=== PATIENT | female | born 2000 | race African-American/Black ===

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

== ENCOUNTER → 2019-07-12 13:35 | Outpatient (CLI) | payer MEDICAID ==
[2018-07-16 15:53] VITALS: BMI 18.8
[~2019-07-12 13:35] MED LIST changes: +PRENAVITE1 TAB PO
== END | disposition home or self-care (01) ==
LOC: D.LDO 13:35
PROVIDERS: ATTEND Obstetrics & Gynecology
DX: O36.5930 Maternal care for other known or suspected poor fetal growth, third trimester, not applicable or unspecified (principal); Z3A.36 36 weeks gestation of pregnancy

== ENCOUNTER → 2019-07-16 11:39 | Outpatient (CLI) | payer MEDICAID ==
[2018-07-16 15:53] VITALS: BMI 18.8
== END | disposition home or self-care (01) ==
LOC: D.LDO 11:39
PROVIDERS: ATTEND Obstetrics & Gynecology
DX: O36.5990 Maternal care for other known or suspected poor fetal growth, unspecified trimester, not applicable or unspecified (principal)

== ENCOUNTER 2019-07-17 14:51 | Inpatient (IN) | payer MEDICAID ==
[~2019-07-17] VITALS: Ht 160 cm; Wt 64.0 kg
[~2019-07-17 14:51] MED LIST changes: -PRENAVITE1 TAB PO
[2019-07-17] MEDS ORDERED: PRENAVITE1 TAB PO (16:23)
[2019-07-17 17:11] LABS: HEMATOCRIT 30.6 % (36.0-48.0); HEMOGLOBIN 9.6 g/dL (12-16); MCH 27.6 pg (26.0-34.0); MCHC 31.4 g/dL (31.0-37.0); MCV 87.9 fL (80.0-100.0); RBC 3.48 10x6/uL (4.00-5.40); RDW 14.8 % (11.5-14.5); WBC 6.5 10x3/uL (4.8-10.8)
[2019-07-17 17:24] VITALS: BP 110/67; Ht 160 cm; Wt 64.0 kg
[2019-07-17 18:41] LABS: APPEARANCE CLEAR (CLEAR); BILIRUBIN NEGATIVE (NEGATIVE); COLOR STRAW (YELLOW); GLUCOSE NEGATIVE (NEGATIVE); KETONE NEGATIVE (NEGATIVE); NITRITE NEGATIVE (NEGATIVE); PROTEIN NEGATIVE (NEGATIVE); SPECIFIC GRAVITY 1.005 (1.005-1.020); UROBILINOGEN NORMAL (NORMAL)
[2019-07-17 18:54] LABS: UDS - AMPHET NEGATIVE QUAL (NEGATIVE); UDS - BARB NEGATIVE QUAL (NEGATIVE); UDS - BENZO NEGATIVE QUAL (NEGATIVE); UDS - COCAINE NEGATIVE QUAL (NEGATIVE); UDS - OPIATE NEGATIVE QUAL (NEGATIVE); UDS - PCP NEGATIVE QUAL (NEGATIVE); UDS - THC NEGATIVE QUAL (NEGATIVE)
[2019-07-17 23:57] VITALS: BP 124/76
--- NOTE | 2019-07-17 23:57 | NUR ---
PT RECEIVED TO ROOM 1222 S/P . PT IS AWAKE AND ALERT AT THIS TIME. SHE STATES SHE IS NOT HURTING AT THIS TIME. REPORT RECEIVED AT BEDSIDE FROM RR NURSE. PT HAS AN IV SITED IN HER RIGHT HAND. IV IS PATENT. THERE IS NOT REDNESS OR SWELLING AT THE SITE. MANAGER SMALL BUSINESS PUMP WITH DILAUDID WAS INITIATED AND THE MANAGER SMALL BUSINESS PAIN CONTROL BUTTON EXPLAINED. SHE HAS A WHITE DRESSING OVER HER INCISION. THERE IS A SMALL AMT OF LIGHT DRAINAGE NOTED WHICH WAS OUTLINED WITH A BLUE PEN. SCD'S PLACED AND WORKING PROPERLY. SHE HAS A BRADSHAW CATHETER DRAINING CONCENTRATED LOOKING URINE. BRADSHAW EMPTIED WITH 350 ML OBTAINED. INCENTIVE SPIROMETER EXPLAINED TO PT AND PT VERBALIZES UNDERSTANDING. PT STATES THAT SHE DOES NOT SMOKE. PEDAL PULSES FELT BILATERALLY. HEART SOUNDS WNL, LUNGS ARE CLEAR, NO BOWEL SOUNDS HEARD AT THIS TIME.
[2019-07-18] VITALS (11 sets, daily range): BP systolic 105–150; BP diastolic 62–78
--- NOTE | 2019-07-18 02:15 | NUR ---
PT IS AWAKE AND TALKING. NEW BAG OF PITOCIN HUNG PER ORDER. PT STATES SHE HAS NO PAIN AT THIS TIME. HER BABY IS IN THE NURSERY AND PT AND SO ARE ENCOURAGED TO REST. PT PERFORMED IS 10 TIMES. PAD CHANGED. SMALL TO MOD AMT LOCHIA WITH SOME STRINGY CLOTS NOTED. BRADSHAW DRAINING WELL.
--- NOTE | 2019-07-18 04:40 | NUR ---
ROUNDS MADE FOR FEEDING ASSESSMENT. INFANT NOT WANTING TO TAKE REGULAR NIPPLE. RED NIPPLE PROVIDED. MOM ASSISTED W/GETTING INFANT TO SUCK W/CHIN SUPPORT INSTRUCTION GIVEN. PT SUCKING AND SWALLOWING.
--- NOTE | 2019-07-18 04:44 | NUR ---
PT IS RESTING QUIETLY. NO C/O AT THIS TIME FUNDUS FIRM. SO SLEEPING IN THE ROOM FLUIDS ENCOURAGED.
[2019-07-18 05:09] LABS: BASOPHILS 0.2 % (0-2); EOSINOPHILS 0.2 % (0-7); HEMATOCRIT 31.1 % (36.0-48.0); HEMOGLOBIN 9.8 g/dL (12-16); IMMATURE GRANULOCYTES 0.3 % (0-5); LYMPHOCYTES 13.3 % (15-50); MCH 27.7 pg (26.0-34.0); MCHC 31.5 g/dL (31.0-37.0); MCV 87.9 fL (80.0-100.0); MEAN PLATELET VOLUME 8.9 fL (7.4-10.4); MONOCYTES 7.7 % (2-11); NEUTROPHILS 78.3 % (40-80); RBC 3.54 10x6/uL (4.00-5.40); RDW 14.5 % (11.5-14.5)
[2019-07-18 05:27] LABS: PLATELET COUNT 171 10x3/uL (130-400); WBC 12.9 10x3/uL (4.8-10.8)
[2019-07-18 07:13] LABS: RAPID PLASMA REAGIN Non Reactive (Non Reactive)
--- NOTE | 2019-07-18 08:10 | NUR ---
PT RESTING IN BED WITH BABY AT BEDSIDE. RESP EVEN AND UNLABORED. PT REPORTS PAIN 8/10 AT THIS TIME. EDUCATED REGARDING DILAUDID DEMURRAGE AGENT. PT THEN PUSHES BUTTON FOR MED ADMINISTRATION. IV TO RIGHT HAND WITH NS w/ 20U PITOCIN INFUSING VIA PUMP. SITE WITHOUT REDNESS OR EDEMA. FUNDAS FIRM 1 BELOW UMBILICUS. SMALL TO SCANT VAGINAL DISCHARGE. INCISION WITH VERONIKA C/D/I, EDGES WELL APPROXIMATED. WITHOUR REDNESS OR EDEMA. DENIES FURTHER NEEDS AT THIS TIME. CL WITHIN REACH. ENCOURAGED TO CALL WITH NEEDS. CONTINUE POC
--- NOTE | 2019-07-18 09:10 | NUR ---
PT RESTING IN BED. F/C DISCONTINUED PER MD ORDERS. 10ML SALINE REMOVED FROM BULB. PT KRISTA WELL. IV SALINE LOCKED AT THIS TIME, FLUSHED WITH 10ML SALINE. EASILY FLUSHES, SITE WITHOUT REDNESS OR EDEMA. INSTRUCTED PT ON COLLEGE ASSOCIATE BEING D/C'D, AND ORAL PAIN MEDICATIONS AVAILABLE. PT VOICES UNDERSTANDING. DENIES FURTHER NEEDS AT THIS TIME. CL WITHIN REACH. HAT PLACED IN TOILET TO COLLECT URINE FOR OUTPUT. ENCOURAGED TO CALL WITH NEEDS. CONTINUE POC
--- NOTE | 2019-07-18 09:48 | NUR ---
PT REPORTS PAIN 10/10 AT THIS TIME. ADMINISTERED PAIN MEDICATIONS ORDERED PER MD. WILL REASSESS EFFECTIVENESS
--- NOTE | 2019-07-18 12:37 | NUR ---
PT REPORTS CONTINUED PAIN 01/05. MOTRIN ADMINISTERED PER MD ORDERS. DENIES FURTHER NEEDS AT THIS TIME. FAMILY AT BEDSIDE. ENCOURAGED TO CALL WITH NEEDS.
[2019-07-18 12:56] LABS: BASOPHILS 0.2 % (0-2); EOSINOPHILS 0.6 % (0-7); HEMATOCRIT 33.3 % (36.0-48.0); HEMOGLOBIN 10.6 g/dL (12-16); IMMATURE GRANULOCYTES 0.2 % (0-5); LYMPHOCYTES 9.9 % (15-50); MCH 28.2 pg (26.0-34.0); MCHC 31.8 g/dL (31.0-37.0); MCV 88.6 fL (80.0-100.0); MEAN PLATELET VOLUME 9.3 fL (7.4-10.4); MONOCYTES 7.5 % (2-11); NEUTROPHILS 81.6 % (40-80); PLATELET COUNT 183 10x3/uL (130-400); RBC 3.76 10x6/uL (4.00-5.40); RDW 14.5 % (11.5-14.5); WBC 12.3 10x3/uL (4.8-10.8)
--- NOTE | 2019-07-18 17:08 | NUR ---
PT AMBULATING IN ROOM. RESP EVEN AND UNLABORED. RATES PAIN 5/10 AT THIS TIME. VITAL SIGNS OBTAINED. DENIES FURTHER NEEDS AT THIS TIME. CL WITHIN REACH. ENCOURAGED TO CALL WITH NEEDS.
--- NOTE | 2019-07-18 17:20 | NUR ---
PT. UP WALKING IN ROOM. STATES PAIN IS MUCH BETTER.
--- NOTE | 2019-07-18 18:45 | NUR ---
RESTING IN BED. NO COMPLAINTS OR NEEDS AT THIS TIME.
--- NOTE | 2019-07-18 19:14 | NUR ---
PT IN NSY AT THIS TIME
--- NOTE | 2019-07-18 19:30 | NUR ---
PT BACK TO ROOM, INFORMED PT THAT I WILL BE IN SHORTLY TO DO ASSESSMENT, PT VERBALIZES UNDERSTANDING, DENIES NEEDS AT THIS TIME
--- NOTE | 2019-07-18 20:00 | NUR ---
ASSESSMENT PER FLOW SHEET, VS OBTAINED, SALINE LOCK IN RIGHT HAND INTACT WITH NO REDNESS OR EDEMA, FF, ML, U/2, PT REPORTS LITE BLEEDING WITH NO CLOTS, BIKINI INC WITH VERONIKA CDI WITH NO DRAINAGE, JAG PAD OVER INC FOR COMFORT AND MOISTURE CONTROL, PT INST ON AND VERBALIZES UNDERSTANDING OF INC CARE, +F, NO BM AND VOIDING WITH NO DIFFICULTY, PT REPORTS VOIDING BEFORE I CAME IN, EMPTIED 100 MLS OF LIGHTLY BLOOD TINGED URINE, PT RATES INC PAIN 04/07, INFORMED PT THAT I WILL CHECK ON PAIN MED AND ADM WHEN DUE, PT REQUESTED AND SERVED APPLE JUICE, DENIES FURTHER NEEDS
--- NOTE | 2019-07-18 21:16 | NUR ---
PT UP IN ROOM VISITING WITH FAMILY AND FRIENDS, FAMILY MEMBER HOLDING , ADM MARANDA AND ARIANA PER MD ORDERS, SEE EMAR, PT REPORTS VOIDING, EMPTIED 300 MLS OF YELLOW URINE FROM [place] [facility], PT DENIES FURTHER NEEDS
--- NOTE | 2019-07-18 22:49 | NUR ---
PT HOLDING INFANT, FOB IN BED WITH PT, SALINE LOCK IN RIGHT HAND FLUSHED WITH 10MLS OF NS WITH NO DIFFICULTY, PT RATES INC PAIN 02/05, REQUESTED AND PROVIDED BOX FAN, DENIES FURTHER NEEDS
[2019-07-19] VITALS (7 sets, daily range): BP systolic 90–121; BP diastolic 40–66
--- NOTE | 2019-07-19 00:30 | NUR ---
PT WALKING BACK INTO ROOM, REPORTS TAKING A LITTLE WALK, PT TO SIDE OF BED, VS OBTAINED, RATES INC PAIN 03/07, INFORMED PT THAT I WILL ADM PAIN MED WHEN DUE, PT VERBALIZES UNDERSTANDING, DENIES NEEDS AT THIS TIME, FOB AT BEDSIDE
--- NOTE | 2019-07-19 01:22 | NUR ---
PT RATES INC PAIN 04/07, ADM NORCO PER MD ORDERS, SEE EMAR, PT DENIES FURTHER NEEDS, FOB ASLEEP IN BED WITH PT
--- NOTE | 2019-07-19 02:28 | NUR ---
PT IN NSY AT THIS TIME
--- NOTE | 2019-07-19 03:35 | NUR ---
PT BACK TO ROOM TO USE THE BR, TOILET PAPER PROVIDED, C/O CRAMPING, ADM MARANDA PER MD ORDERS, PT BACK TO Y, GAIT STEADY
--- NOTE | 2019-07-19 04:45 | NUR ---
PT BACK TO ROOM, VS OBTAINED, RATES INC PAIN 11/05, DENIES NEEDS AT THIS TIME, FOB ASLEEP IN BED WITH PT
--- NOTE | 2019-07-19 06:04 | NUR ---
PT AWAKE, ADM NORCO PER MD ORDERS, SEE EMAR, SALINE LOCK FLUSHED WITH NO DIFFICULTY, PT DENIES FURTHER NEEDS, FOB ASLEEP IN BED WITH PT
--- NOTE | 2019-07-19 08:00 | NUR ---
PT OUT OF ROOM, AMBULATING IN HALLWAY GOING TO NURSERY TO SEE BABY. NO ACUTE DISTRESS NOTED. GAIT STEADY AT THIS TIME.
--- NOTE | 2019-07-19 10:15 | NUR ---
PT AMBULATING BACK TO ROOM. RESP EVEN AND UNLABORED. PT REPORTS PAIN 8/10 AT THIS TIME. PAIN MEDICATION TO BE ADMINISTERED PER MD ORDERS. SALINE LOC TO RIGHT HAND. SITE WITHOUT REDNESS OR EDEMA. FUNDUS FIRM, 2 BELOW UMBILICUS. SMALL TO SCANT LOCHIA. BIKINI INCISION WITH VERONIKA NOTED. EDGES WELL APPROXIMATED NO DRAINAGE NOTED. DENIES FURTHER NEEDS AT THIS TIME. CL WITHIN REACH. ENCOURAGED TO CALL WITH NEEDS. CONTINUE POC
--- NOTE | 2019-07-19 11:20 | NUR ---
SALINE LOCK D/C'D FROM LEFT HAND. CATHETER INTACT. BANDAGE PLACED OVER INSERTION SITE.
--- NOTE | 2019-07-19 13:04 | NUR ---
PT RESTING IN BED WITH FAMILY AT BEDSIDE. HAS AMBULATED SEVERAL TIMES TO THE NURSERY TO CHECK ON BABY. C/O UTERINE CRAMPING. REQUESTS MOTRIN.
--- NOTE | 2019-07-19 16:25 | NUR ---
PATIENT RESTING QUIETLY WITH EYES CLOSED IN BED. NO COMPLAINTS AT THIS TIME.
--- NOTE | 2019-07-19 17:44 | NUR ---
C/O INCISIONAL PAIN. REQUESTING PAIN MEDICINE. FRIENDS AND FAMILY AT BEDSIDE.
--- NOTE | 2019-07-19 18:28 | NUR ---
PATIENT SITTING UP IN BED WATCHING TV. STATES PAIN IS BETTER FOLLOWING NORCO ADMINISTRATION. NO OTHER COMPLAINTS AT THIS TIME.
--- NOTE | 2019-07-19 19:20 | NUR ---
PT RESTING IN BED. ASSESSMENT COMPLETE PER FLOWSHEET. VSS. BS CLEAR IN ALL LOBES. ABD SOFT, BUT DISTENDED. ACTIVE BS X4 QUADRANTS. PT C/O ABD PAIN STATING THAT IT FEELS LIKE "GAS." SHE REPORTS SHE HAS PASSED FLATUS, BUT HAS NOT HAD A BM. DISCUSSED WITH PT DRINKING PRUNE JUICE TO HELP HER HAVE A BM AND GETTING AN ORDER FROM MD FOR SIMETHICON FOR THE GAS DISCOMFORT. PT AGREED WITH BOTH. PT RATES HER PAIN AT 8/10, BUT IS INFORMED IT IS TO SOON FOR PAIN MEDICATION. DISCUSSED WITH PT THAT SHE NEEDS TO AMBULATE AND WHILE LYING IN BED TO REST ON HER SIDE TO HELP PASS GAS AND WITH THE DISCOMFORT. FUNDUS FIRM AT UMBILICUS. INCISION C/D/I WITH VERONIKA. SCANT AMOUNT OF LOCHIA NOTED ON PERIPAD. NO EDEMA NOTED TO BLE. POC DISCUSSED WITH PT INCLUDING PAIN MANAGEMENT, AMBULATION, S/S OF INFECTION, AND INCISION CARE. QUESTIONS ANSWERED. PT INSTRUCTED TO NOTIFY NURSE WITH ANY PROBLEMS, NEEDS, OR CONCERNS. VERBALIZED UNDERSTANDING. BED IN LOW POSITION. SRUP X2. CALL LIGHT AND TELEPHONE WITHIN PTS REACH.
--- NOTE | 2019-07-19 19:50 | NUR ---
PT. AMBULATORY TO ROOM FROM VISITING INFANT IN N. GAIT SLOW BUT STEADY.
--- NOTE | 2019-07-19 19:50 | NUR ---
DR. GIPSON CALLED AND INFORMED OF PT. C/O GAS ALTHOUGH PASSING FLATUS. ORDER RECEIVED.
--- NOTE | 2019-07-19 20:00 | NUR ---
SIMETHICON 160MG GIVEN TO PT FOR C/O GAS DISCOMFORT PER MD. PT ALSO DRINKING PRUNE JUICE AT THIS TIME.
--- NOTE | 2019-07-19 20:41 | NUR ---
PT. WALKING IN HALLWAY. VISITOR WITH PT. STATES SHARP PAINS IN ABD HAVE SUBSIDED BUT STILL HAS SOME BACKPAIN. STATES SHE WILL CONTINUE TO WALK.
--- NOTE | 2019-07-19 21:01 | NUR ---
PT UP TO BATHROOM TRYING TO HAVE A BM. C/O INCISIONAL PAIN. MOTRIN 600MG GIVEN. APPLE JUICE PROVIDED. INSTRUCTED PT TO NOTIFY NURSE WITH ANY OTHER PROBLEMS, NEEDS, OR CONCERNS. VERBALIZED UNDERSTANDING.
--- NOTE | 2019-07-19 21:49 | NUR ---
PT AMBULATING IN HALLWAY TO [facility]. REPORTS THAT HER PAIN HAS NOT IMPROVED FROM TAKING MOTRIN GIVEN EARLIER. PT REPORTS THAT IT IS GAS SHE FEELS IN HER ABD AND RADIATING AROUND TO HER BACK. NORCO OFFERED AT THIS TIME. PT STATED THAT SHE WANTS TO GO TO THE N FIRST AND SHE WILL LET THE NURSE KNOW WHEN SHE IS BACK FOR PAIN MEDICATION.
--- NOTE | 2019-07-19 22:12 | NUR ---
PT BACK TO ROOM FROM N. NORCO X1 TAB GIVEN FOR C/O ABD/INCSIONAL PAIN. INSTRUCTED PT TO NOTIFY NURSE FOR ANY OTHER NEEDS, QUESTIONS, OR CONCERNS. VERBALIZED UNDERSTANDING. BED IN LOW POSITION. SRUP X2. CALL LIGHT AND TELEPHONE WITHIN PTS REACH.
--- NOTE | 2019-07-19 23:00 | NUR ---
PT AMBULATING TO NBN TO FEED . PT IS NOW RATING HER PAIN AT 7/10. NO DISTRESS NOTED.
--- NOTE | 2019-07-19 23:40 | NUR ---
PT BACK TO ROOM FROM NBN. SO IN ROOM. VS OBTAINED. PT REPORTS HER PAIN IS BETTER. FOOD WARMED. DISCUSSED WITH PT WHEN SHE CAN HAVE HER NEXT DOSE OF PAIN MEDICATION AND TO NOTIFY THE NURSE WHEN SHE IS NEEDING MEDICATION. NO OTHER REQUEST MADE. INSTRUCTED PT TO NOTIFY NURSE WITH ANY PROBLEMS, NEEDS, OR CONCERNS. VERBALIZED UNDERSTANDING. BED IN LOW POSITION. SR UP X2. CALL LIGHT AND TELEPHONE WITHIN PTS REACH.
--- NOTE | 2019-07-20 02:01 | NUR ---
PT AMBULATING IN ROOM. C/O INC/ABD PAIN. NORCO 10 X1 TABLET GIVEN. NO OTHER REQUEST MADE. PT THEN AMBULATED OVER TO NBN TO FEED . INSTRUCTED PT TO NOTIFY NURSE WITH ANY OTHER PROBLEMS, NEEDS, OR CONCERNS. VERBALIZED UNDERSTANDING.
--- NOTE | 2019-07-20 02:53 | NUR ---
PT AMBULATING BACK TO ROOM FROM NBN. PT STATES SHE DOES NOT HAVE ANY PAIN AT THIS TIME. NO REQUEST MADE. INSTRUCTED PT TO NOTIFY NURSE WITH ANY PROBLEMS, NEEDS, OR CONCERNS. VERBALIZED UNDERSTANDING.
--- NOTE | 2019-07-20 04:05 | NUR ---
PT RESTING IN BED WITH EYES CLOSED. NO DISTRESS NOTED. BED IN LOW POSITION. SR UP X2. CALL LIGHT AND TELEPHONE WITHIN PTS REACH.
--- NOTE | 2019-07-20 06:15 | NUR ---
PT UP TO BATHROOM. NORCO 10 AND MOTRIN 600MG X1 TABLET GIVEN FOR C/O ABD/INC PAIN. SIMETHICONE ALSO GIVEN PER PT REQUEST. TOWELS, WASHCLOTHS, GOWN AND BODYWASH GIVEN TO PT FOR SHOWER. APPLE JUICE AND CRACKERS PROVIDED. PT STATES THAT SHE IS GOING TO NBN TO FEED BABY. NO OTHER NEEDS VERBALIZED AT THIS TIME. INSTRUCTED PT TO NOTIFY NURSE WITH ANY PROBLEMS, NEEDS, OR CONCERNS. VERBALIZED UNDERSTANDING. BED IN LOW POSITION. SR UP X2. CALL LIGHT AND TELEPHONE WITHIN PTS REACH.
--- NOTE | 2019-07-20 07:05 | NUR ---
DR. ALEJANDRA IN ROOM TO SPEAK WITH PT REGARDING PLAN OF CARE AND DISCHARGE.
--- NOTE | 2019-07-20 07:10 | NUR ---
DR. ALEJANDRA AT DESK, VERBAL ORDER TO CHANGE NORCO 10 MG TO PERCOCET 10 MG ONE PO Q 4 HRS PRN PAIN, AT NEXT DOSE DUE.
--- NOTE | 2019-07-20 07:50 | NUR ---
PT AMBULATORY IN HALLWAYS, TO NSY. PT SMILING AND DENIES ALL NEEDS AT THIS TIME.
--- NOTE | 2019-07-20 10:25 | NUR ---
TO PT'S ROOM, PT IS IN THE BATHROOM. WILL RETURN FOR MED ADM. PT AGREES.
--- NOTE | 2019-07-20 11:30 | NUR ---
PT REPORTS THE PERCOCET DID HELP HER PAIN A LOT BETTER THAN THE NORCO. EXPLAINED TO PT WILL INFORM MD AND HE WILL BRING DOWN A PRESRIPTION FOR HER TO GET FILLED. ROOMING IN STATUS EXPLAINED TO PT, PT AGREES, AND ROOMING IN STATUS EXPLAINED TO PT WELL BY Mraga ASHER LPN.
--- NOTE | 2019-07-20 12:30 | NUR ---
PT AMBULATORY IN HALLWAYS TO [facility]. SMILING, DENIES NEEDS AT THIS TIME. PT ASKING WHEN DR. ALEJANDRA WILL BE BY TO LEAVE HER NEW PRESCRIPTION SO SHE CAN HAVE SOMEONE GO PICK IT UP, SHE HAS VISITOR AVAILABLE NOW TO DO THAT.
--- NOTE | 2019-07-20 13:00 | NUR ---
DR. JUSTYN WOOD, INFORMED PT IS WAITING ON SCRIPT, SHE STATES THE PERCOCET HAS WORKED MUCH BETTER. MD STATES HE WILL BRING IT DOWN TO UNIT.
--- NOTE | 2019-07-20 13:15 | NUR ---
DR. ALEJANDRA ON UNIT, INFORMED MD PT IS REPORTING PERCOCET HELPED WITH HER PAIN MUCH BETTER THAN THE NORCO. MD WILL WRITE HOME MED SCRIPT FOR PERCOCET 5/325 MG. PT INFORMED.
[2019-07-20] MEDS ORDERED: PERCOCET 5-3251 TAB PO (13:34)
[2019-07-20] MEDS ORDERED: IBUPROFEN600 MG PO (13:35)
--- NOTE | 2019-07-20 13:45 | NUR ---
AFTER COMPLETION OF DISCHARGE INSTRUCTIONS, AND COPIES PROVIDED TO PT, PT IS ASKING IF SHE CAN HAVE A SHOT OF DEPO PROVERA. WILL CONTACT MD FOR ORDER.
--- NOTE | 2019-07-20 14:00 | NUR ---
DR. JUSTYN WOOD, AND RETURNS CALL, REQUEST FOR DEPO PROVERA INJECTION FOR CONTROL, REQUESTED BY PT. TELEPHONE ORDER RECEIVED TO ADM DEPO PROVERA NOW.
--- NOTE | 2019-07-20 14:20 | NUR ---
DR. EGAN IN ROOM SPEAKING WITH PT.
--- NOTE | 2019-07-20 14:44 | NUR ---
DEPO PROVERA 150 MG IM GIVEN TO LEFT DELTOID, PT KRISTA WELL. PT IS DISCHARGED TO ROOMING IN STATUS, PT HAS GIVEN HER SCRIPTS TO HER COUSIN TO GO AND GET THEM FILLED. CLEAN LINENS/PERIPADS/PANTIES PROVIDED FOR PT.
--- NOTE | 2019-08-02 17:06 | OP ---
PATIENT NAME: TOMMY GIBSON MEDICAL RECORD: [id number] :99 LOCATION:[facility] [id number] ADMISSION DATE:07/17/19 SURGEON: LEODAN VELAZQUEZ MD DATE OF OPERATION: 07/17/2019 PREOPERATIVE DIAGNOSES: 1. Intrauterine growth restriction at term. 2. History of previous section. 3. Regular uterine contractions. POSTOPERATIVE DIAGNOSES: 1. Intrauterine growth restriction at term. 2. History of previous section. 3. Regular uterine contractions. PROCEDURE: Repeat low transverse section and lysis of adhesions. SURGEON: Leodan Velazquez MD ANESTHESIA: Regional via spinal. INTRAVENOUS FLUIDS: Per anesthesia record. FINDINGS: Included; 1. Viable infant. 2. Placenta delivered manually intact, 3-vessel cord. 3. Normal adnexa bilaterally. SPECIMENS: Placenta and cord for gases. ESTIMATED BLOOD LOSS: 800 cc. COMPLICATIONS: None apparent. DESCRIPTION OF PROCEDURE: The patient taken to the operating room, where regional anesthesia was achieved without any difficulty. The patient was prepped and draped in normal sterile fashion in the dorsal supine position. SCDs were on and functioning normally and a Cheek catheter had been placed and was draining freely. A repeat Pfannenstiel skin incision was made, extended carefully downward through the very minimal amount of subcutaneous fat to the level of the fascia. The fascia was then excised in the midline using the knife until both left and right side of the rectus abdominis muscles were directly visualized. The fascial incision was then carefully dissected laterally using the Sanon scissors. The superior and inferior aspects of the fascial incision were grasped with Josseline clamps times 2, tented upward and it was sharply dissected from the underlying rectus muscle using the Sanon scissors and the Bovie cautery. The peritoneum was entered at the most superior aspect of the incision sharply using the Metzenbaum scissors into a clear area. Multiple areas of pelvic adhesive disease involving the uterus, peritoneum, anterior abdominal wall, and bladder were then carefully dissected downward using the Metzenbaum scissors under direct visualization of the bladder. A bladder flap developed during the dissection and a bladder blade was then placed over the bladder. A scalpel was used to create the low transverse incision, which was then extended using the Pelosi method. The vertex and body were then delivered atraumatically. was bulb suctioned. The cord was clamped OPERATIVE REPORT [id number] TOMMY GIBSON times 2, cut, and the infant was handed to the awaiting nursery team. At this time, cord was obtained for gases and the placenta was removed manually intact. The uterus was exteriorized, cleared of all clots and debris and vigorously massaged until good uterine tone was noted. The uterus was repaired with 0 Vicryl in a running locked fashion times 2 with good hemostasis noted. The posterior cul-de-sac was then thoroughly irrigated and the uterus was returned into the pelvis. Anterior cul-de-sac was then thoroughly irrigated and good hemostasis was noted. Counts were correct times 2 for needles, sponges, and instruments. The fascia was then repaired with 0 loop PDS, and the skin repaired with hussein. The patient tolerated the procedure well, transferred to postanesthesia recovery stable without incident. TRANSINT:[id number] Voice Confirmation ID: [id number] DOCUMENT ID: [id number] LEODAN VELAZQUEZ MD at 1706 CC: [id number] DICTATION DATE: 07/29/19 1033 OUTSOLE SPLICER: 07/29/19 1155 DIS IN 07/20/[address] [facility] [address] [place] [address]
== END 2019-07-20 14:45 | disposition home or self-care (01) | DRG 788 ==
LOC: D.LDO 14:51 → D.LD 17:19 → D.WS 17:19
PROVIDERS: ADMIT Obstetrics & Gynecology; ATTEND Obstetrics & Gynecology
PROC: 10D00Z1 Extraction of Products of Conception, Low, Open Approach (ICD-10-PCS; principal; 2019-07-17 19:08)
DX: O36.5930 Maternal care for other known or suspected poor fetal growth, third trimester, not applicable or unspecified (principal); Z3A.37 37 weeks gestation of pregnancy; Z37.0 Single live birth; O34.219 Maternal care for unspecified type scar from previous cesarean delivery